=== PATIENT | female | born 1965 | race African-American/Black ===

== ENCOUNTER 2020-05-01 13:58 | Emergency (ER) | payer OTHER ==
[2020-05-01 14:06] VITALS: BP 124/67; PULSE 80; TEMP 98.5; BMI 26.9
[2020-05-01] MEDS ORDERED: IBUPROFEN 600 MG TABLET (FP) PO ONE ×2 (15:25→15:53)
== END 2020-05-01 15:56 | disposition home or self-care (01) ==
LOC: JERFT 13:58
DX: S92.315A Nondisplaced fracture of first metatarsal bone, left foot, initial encounter for closed fracture (principal); W23.0XXA Caught, crushed, jammed, or pinched between moving objects, initial encounter
CPT/HCPCS: 73630-TC-LT; 99283-25